=== PATIENT | male | born 1950 | race Caucasian/White ===

== ENCOUNTER 2018-03-02 19:19 | Inpatient (IN) ==
[2018-03-02 19:51] LABS: Basophils % 0.5 %; Eosinophils # 0.1 K/mcL (0.0-0.6); Eosinophils % 1.4 %; Hematocrit 40.5 % (37.5-50.1); Hemoglobin 14.4 g/dL (12.9-16.9); Immature Granulocytes % 0.6 % (0-4); Lymphocytes # 2.3 K/mcL (0.6-4.6); Lymphocytes % 27.1 %; Mean Corpuscular HGB Conc 35.6 g/dL (31.6-35.5); Mean Corpuscular Hemoglobin 29.6 pg (28.0-33.3); Mean Corpuscular Volume 83.3 fL (83.0-100.0); Mean Platelet Volume 11.2 fL (9.4-12.4); Monocytes # 0.6 K/mcL (0.0-1.3); Monocytes % 7.2 %; Neutrophils # 5.5 K/mcL (1.6-8.9); Platelet Count 178 K/mcL (140-400); Red Blood Count 4.86 M/mcL (4.19-5.50); Red Cell Distribution Width 12.7 % (11.5-14.5); Segmented Neutrophils % 63.2 %
[2018-03-02 19:57] LABS: VBG HCO3 22 mEq/L (21-27); VBG PCO2 47 mmHg (41-51); VBG PH 7.29 pH Units (7.32-7.42); VBG PO2 36 mmHg (25-50)
[2018-03-02 20:15] LABS: Alanine Aminotransferase 26 Units/L (7-52); Albumin 4.4 g/dL (3.5-5.7); Albumin/Globulin Ratio 1.4 (1.1-2.2); Alkaline Phosphatase 142 Units/L (34-104); Amylase 13 Units/L (29-103); Aspartate Amino Transferase 20 Units/L (13-39); BUN/Creatinine Ratio 18 (6-26); Bilirubin,Direct 0.1 mg/dL (0.0-0.2); Bilirubin,Indirect 0.5 mg/dL (0.0-1.2); Bilirubin,Total 0.6 mg/dL (0.3-1.0); Blood Urea Nitrogen 85 mg/dL (8-23); Calcium 9.6 mg/dL (8.6-10.3); Carbon Dioxide 21 mEq/L (23-29); Chloride 93 mEq/L (98-107); Globulin 3.2 g/dL (2.4-3.5); Glucose 547 mg/dL (70-105); Lipase 65 Units/L (11-82); Osmolality,Calculated 309 (280-300); Potassium 4.6 mEq/L (3.5-5.1); Sodium 124 mEq/L (136-145); Total Protein 7.6 g/dL (6.4-8.9); eGFR For African Americans 15 (> 60); eGFR For Non-African Americans 13 (> 60)
[2018-03-02 20:50] LABS: Bilirubin,Urine Negative (Negative); Blood,Urine Trace (Negative); Clarity,Urine Clear (Clear); Color,Urine Yellow (Yellow); Glucose,Urine (UA) >=1000 mg/dL (Normal); Ketones,Urine Negative (Negative); Leukocyte Esterase,Urine Negative (Negative); Nitrite,Urine Negative (Negative); PH,Urine 5.5 pH Units (5.0-8.0); Protein,Urine Trace mg/dL (Neg-Trace); Specific Gravity,Urine 1.028 (1.010-1.025); Urobilinogen,Urine Normal (Normal)
[2018-03-02 20:53] LABS: Bacteria,Urine None Seen per hpf (None-Few); Hyaline Casts,Urine None Seen per lpf (None-Few); RBC,Urine 0-3 per hpf (0-3); Squamous Epithelial Cell,Urine None Seen per lpf (None-Few); WBC,Urine 0-3 per hpf (0-3)
--- NOTE | 2018-03-02 21:32 | Internal Med History&Physical ---
Date of Encounter: 03/02/18 Time of Encounter: 21:30 Internal Medicine - H&P: HPI Chief complaint: Abnormal labs Admitted From: Emergency Dept Plans for Post Hospital Care: Home History of present illness: Mr. Welch is a 67 year old male with history of hypertension, hyperlipidemia, obesity, gout, GERD, chronic kidney disease [address] Kern , who was sent to the ED as he went to his primary care doctor was found to have labs showing elevated glucose and worsening kidney function. This was confirmed on repeat labs in the ED with glucose in the 564. Not in DKA. Sodium was 124. Lactic acid 1.6. Creatinine was 4.64 which is above his baseline. Otherwise the patient was hemodynamically stable. He has been feeling lightheaded for two weeks or so. No chest pain. No syncopal events. Reports hyperglycemic symptoms such as polydipsia and polyuria. He was out working on his pool earlier today when he felt really lightheaded and went to his PCP where the labs were ordered. He denies fever, chills, nausea, vomiting , chest pain, shortness of breath abdominal abdominal pain, diarrhea, constipation, numbness, tingling, or weakness Past Med Surg Social Fam HX - Past Medical History Medical history: GERD, hyperlipidemia, hypertension, kidney stones, other Psychiatric history: no psych history - Social History Smoking Status: Never smoker Smokeless Tobacco Status: No Alcohol use: none Drug use: none Internal Medicine - H&P: Meds Lisinopril [Zestril] 20 mg PO DAILY 10/10/17 [History] Omeprazole [PriLOSEC] 20 mg PO DAILY 10/10/17 [History] Allopurinol [Zyloprim 100 MG] 100 mg PO DAILY 03/02/18 [History] Simvastatin [Zocor] 20 mg PO HS 03/02/18 [History] 3 Allergy/AdvReac Type Severity Reaction Status Date / Time No Known Allergies Allergy Verified 03/02/18 21:02 All Systems PM: A 10-system review of systems was performed and is negative for pertinent findings except as documented above in the HPI. Review of systems: All systems reviewed are negative except for as mentioned above - Constitutional Vitals: Temp Pulse Resp BP Pulse Ox 97.3 F L 84 20 111/73 98 03/02/18 20:10 03/02/18 20:10 03/02/18 20:10 03/02/18 20:10 03/02/18 20:10 Exam: GEN: NAD HEENT: AT, NC, No cyanosis, oral mucosa is moist, No JVD Lymphatics: No lymphadenoapthy Eyes: Extrocular muscles intact, anicteric CVS:RRR. S1, S2, No m/r/g RESP: CTAB ABD: Soft, NT, ND, +BS EXT: No edema, No rashes, 2+ DP NEURO: Nonfocal, CN II-XII intact, No focal motor or sensory deficits Psych: Cooperative, Not anxious or depressed Internal Med - H&P Results - Labs CBC & Chem 7: 03/02/18 19:38 03/02/18 19:38 Labs: Short CBC 03/02/18 Range/Units 19:38 WBC 8.6 (4.3-11.1) K/mcL Hgb 14.4 (12.9-16.9) g/dL Hct 40.5 (37.5-50.1) % Plt Count 178 (140-400) K/mcL Neutrophils # 5.5 (1.6-8.9) K/mcL BMP 03/02/18 19:38 Sodium 124 L Potassium 4.6 Chloride 93 L Carbon Dioxide 21 L BUN 85 H Creatinine 4.64 H Glucose 547 H* Calcium 9.6 Liver Function 03/02/18 Range/Units 19:38 Total Bilirubin 0.6 (0.3-1.0) mg/dL Direct Bilirubin 0.1 (0.0-0.2) mg/dL AST 20 (13-39) Units/L ALT 26 (7-52) Units/L Alkaline Phosphatase 142 H (34-104) Units/L Albumin 4.4 (3.5-5.7) g/dL Urine 03/02/18 Range/Units 20:35 Urine Color Yellow (Yellow) Urine Clarity Clear (Clear) Urine pH 5.5 (5.0-8.0) pH Units Ur Specific [place] 1.028 H (1.010-1.025) Urine Protein Trace (Neg-Trace) mg/dL Urine Glucose (UA) >=1000 H (Normal) mg/dL - ABG Interpretation ABG results: 03/02/18 19:54 VBG pH 7.29 L VBG pCO2 47 VBG pO2 36 VBG HCO3 22 - Impressions ITS Impressions Chest X-Ray 03/02/18 21:04 IMPRESSION: No acute process. D/ / Ahmet See MD / Ahmet See MD Interpreting Provider: Ahmet See MD - Assessment and plan (1) Hyperglycemia Current Visit: Yes Status: Acute Assessment and plan: Likely new diagnosis of diabetes. We will check A1c. We will place on high dose sliding scale insulin. Patient may need insulin at discharge depending on his A1c. We will ask personal development educator to see him. (2) TERI (acute kidney injury) Current Visit: Yes Status: Acute Assessment and plan: Patient has CK-MB based on previous labs. This is much worse than when he is at baseline. Baseline is hard 2-2.3. We will try to hydrate. Check renal ultrasound. Avoid nephrotoxins. (3) CKD (chronic kidney disease) stage 3, GFR 30-59 ml/min Current Visit: Yes Status: Acute Assessment and plan: We will monitor. Plan is as above (4) Hyponatremia Current Visit: Yes Status: Acute Assessment and plan: Likely pseudohyponatremia with elevated glucose. We will monitor. (5) Hypertension Current Visit: Yes Status: Acute Assessment and plan: Blood pressure stable. Hold lisinopril given teri. We will order IV hydralazine to be used when necessary. Qualifiers: Hypertension type: essential hypertension Qualified Code(s): I10 - Essential (primary) hypertension (6) HLD (hyperlipidemia) Current Visit: Yes Status: Acute Assessment and plan: Continue statin Qualifiers: Hyperlipidemia type: unspecified Qualified Code(s): E78.5 - Hyperlipidemia , unspecified (7) GERD (gastroesophageal reflux disease) Current Visit: Yes Status: Acute Assessment and plan: Resume home PPI Qualifiers: Esophagitis presence: without esophagitis Qualified Code(s): K21.9 - Gastro -esophageal reflux disease without esophagitis (8) DVT prophylaxis Current Visit: Yes Status: Acute Assessment and plan: Heparin subcutaneous (9) Lightheadedness Current Visit: Yes Status: Acute Assessment and plan: Possibly from elevated glucose causing dehydration. Will check TSH, orthostatics , and echo - Time Spent With Patient Total time spent is greater than 50% in coordination of care (as documented) at patient's floor/unit and/or counseling patient:
[2018-03-02 21:34] LABS: Troponin I < 0.03 ng/mL (< 0.04)
[2018-03-02] MEDS ORDERED: Naloxone 0.4 MG/ML INJ IVP PRN (21:38)
[2018-03-02] MEDS ORDERED: 0.9 % Sodium Chloride 1,000 ML IVC ONE (21:38)
[2018-03-02] MEDS ORDERED: Acetaminophen 325 MG TABLET PO PRN (21:38)
[2018-03-02] MEDS ORDERED: Insulin Regular, Human 100 UNIT/ML SQ ONE (21:38)
[2018-03-02] MEDS ORDERED: *HR* Dextrose 50 % in Water (Syg) 50 ML SYRINGE IVP PRN (21:39)
[2018-03-02] MEDS ORDERED: D5% in Water 1,000 ML IVC PRN (21:39)
[2018-03-02] MEDS ORDERED: Dextrose Gel 15 GM/37.5 ML TUBE PO PRN ×2 (21:39)
[2018-03-02 21:52] LABS: Estimated Average Glucose 410 mg/dl; Hemoglobin A1C 15.9 %
--- NOTE | 2018-03-02 22:04 | Emergency Department Note ---
Disposition Clinical Impression: Hyperglycemia, ARF (acute renal failure) Disposition: Admitted As Inpatient Condition: Fair Referrals: Noemi Lowe CNP [Primary Care Provider] - General Adult HPI - General Chief complaint: ED General Medical Stated complaint: "Hyperglycemia/Sent by PCP" Time Seen by Provider: 03/02/18 19:38 Source: patient Mode of arrival: ambulatory Limitations: no limitations Nursing Notes Reviewed: Yes Vital Signs Reviewed: Yes - History of Present Illness HPI Narrative: 67-year-old male presents emergency Department with concerns of elevated blood sugar. Patient states his blood sugar is been increasing over the past 2 months. Patient reports he has been having episodes of lightheadedness and near syncopal symptoms at home with exertion. He had outpatient testing performed with his primary care provider who then sent him to the emergency department for further evaluation. Patient denies chest pain, shortness of breath, rash, fever, cough, abdominal pain. Pain Scale: 6 - Related Data Home Medications Medication Instructions Recorded Confirmed Lisinopril [Zestril] 20 mg PO DAILY 10/10/17 03/02/18 Omeprazole [PriLOSEC] 20 mg PO DAILY 10/10/17 03/02/18 Allopurinol [Zyloprim 100 MG] 100 mg PO DAILY 03/02/18 03/02/18 Simvastatin [Zocor] 20 mg PO HS 03/02/18 03/02/18 Allergies Allergy/AdvReac Type Severity Reaction Status Date / Time No Known Allergies Allergy Verified 03/02/18 21:02 All systems ED: reviewed and negative except as stated. Review of Systems: As Per HPI Past Medical History - Past Medical History Attestation: Yes The following information was validated with the patient. Source: patient Medical history: Reports: GERD, hyperlipidemia, hypertension, kidney stones, other Psychiatric history: Reports: no psych history - Social History Smoking Status: Never smoker Smokeless Tobacco Status: No Alcohol use: Reports: none Drug use: Reports: none Physical Exam General: Alert and in no acute distress Skin: Warm, dry, intact Head: Normocephalic and atraumatic Neck: Supple, trachea midline and no tenderness Cardiovascular: RRR, no murmur, normal perfusion Respiratory: CTAB, no wheezing, cough, or respiratory distress Musculoskeletal: Normal strength, no tenderness, swelling or deformity GI: Soft, nontender, nondistended. Bowel sounds present Neuro: A&O to person, place, time and situation. No focal deficits noted on exam Psychiatric: cooperative and appropriate mood and affect. - General General appearance: alert Course Vital Signs Temperature 97.3 F L 03/02/18 19:25 Pulse Rate 84 03/02/18 19:25 Respiratory Rate 20 03/02/18 19:25 Blood Pressure 111/73 03/02/18 19:25 O2 Sat by Pulse Oximetry 98 03/02/18 19:25 Temperature 97.3 F L 03/02/18 20:10 Pulse Rate 84 03/02/18 20:10 Respiratory Rate 20 03/02/18 20:10 Blood Pressure 111/73 03/02/18 20:10 O2 Sat by Pulse Oximetry 98 03/02/18 20:10 Oxygen Delivery Oxygen Delivery Room Air Medical Decision Making - MDM Narrative Medical decision making narrative: Patient has significantly elevated blood sugar however he does not have elevated beta hydroxybutyric acid or an anion gap on laboratory evaluation. Patient does have acute renal failure at creatinine of 4, his baseline creatinine is around 2. Patient will be given IV fluids and he will be admitted to hospitalist for further care and evaluation. Patient received insulin in the emergency department. Initial troponin negative. EKG showed sinus bradycardia with a rate of 59 without evidence of STEMI. - Medical Records Medical records reviewed: Yes I reviewed the patient's medical records. - Lab Data Lab results reviewed: Yes I reviewed the patient's lab results. Result diagrams: 03/02/18 19:38 03/02/18 19:38 Lab Results 03/02/18 03/02/18 03/02/18 Range/Units 19:33 19:33 19:38 WBC 8.6 (4.3-11.1) K/mcL RBC 4.86 (4.19-5.50) M/mcL Hgb 14.4 (12.9-16.9) g/dL Hct 40.5 (37.5-50.1) % MCV 83.3 (83.0-100.0) fL MCH 29.6 (28.0-33.3) pg MCHC 35.6 H (31.6-35.5) g/dL RDW 12.7 (11.5-14.5) % Plt Count 178 (140-400) K/mcL MPV 11.2 (9.4-12.4) fL Immature Gran % 0.6 (0-4) % Seg Neutrophils % 63.2 % Lymphocytes % 27.1 % Monocytes % 7.2 % Eosinophils % 1.4 % Basophils % 0.5 % Neutrophils # 5.5 (1.6-8.9) K/mcL Lymphocytes # 2.3 (0.6-4.6) K/mcL Monocytes # 0.6 (0.0-1.3) K/mcL Eosinophils # 0.1 (0.0-0.6) K/mcL Basophils # 0.0 (0.0-0.2) K/mcL VBG pH (7.32-7.42) pH Units VBG pCO2 (41-51) mmHg VBG pO2 (25-50) mmHg VBG HCO3 (21-27) mEq/L Sodium (136-145) mEq/L Potassium (3.5-5.1) mEq/L Chloride (98-107) mEq/L Carbon Dioxide (23-29) mEq/L BUN (8-23) mg/dL Creatinine (0.70-1.30) mg/dL Est GFR ( Amer) (> 60) Est GFR (Non-Af Amer) (> 60) BUN/Creatinine Ratio (6-26) Glucose (70-105) mg/dL POC Glucose 545 H* 564 H* (70-99) mg/dL Calculated Osmolality (280-300) Lactic Acid (0.5-2.2) mmol/L Calcium (8.6-10.3) mg/dL Total Bilirubin (0.3-1.0) mg/dL Direct Bilirubin (0.0-0.2) mg/dL Indirect Bilirubin (0.0-1.2) mg/dL AST (13-39) Units/L ALT (7-52) Units/L Alkaline Phosphatase (34-104) Units/L Troponin I (< 0.04) ng/mL Serum Total Protein (6.4-8.9) g/dL Albumin (3.5-5.7) g/dL Globulin (2.4-3.5) g/dL Albumin/Globulin Ratio (1.1-2.2) Amylase (29-103) Units/L Lipase (11-82) Units/L Beta-Hydroxybutyric Acd (0.02-0.27) mmol/L Urine Color (Yellow) Urine Clarity (Clear) Urine pH (5.0-8.0) pH Units Ur Specific [place] (1.010-1.025) Urine Protein (Neg-Trace) mg/dL Urine Glucose (UA) (Normal) mg/dL Urine Ketones (Negative) mg/dL Urine Blood (Negative) Urine Nitrite (Negative) Urine Bilirubin (Negative) Urine Urobilinogen (Normal) mg/dL Ur Leukocyte Esterase (Negative) Urine Microscopic RBC (0-3) per hpf Urine Microscopic WBC (0-3) per hpf Ur Squamous Epith Cells (None-Few) per lpf Urine Bacteria (None-Few) per hpf Hyaline Casts (None-Few) per lpf Ur Culture Indicated? (NO) 03/02/18 03/02/18 03/02/18 Range/Units 19:38 19:38 19:38 WBC (4.3-11.1) K/mcL RBC (4.19-5.50) M/mcL Hgb (12.9-16.9) g/dL Hct (37.5-50.1) % MCV (83.0-100.0) fL MCH (28.0-33.3) pg MCHC (31.6-35.5) g/dL RDW (11.5-14.5) % Plt Count (140-400) K/mcL MPV (9.4-12.4) fL Immature Gran % (0-4) % Seg Neutrophils % % Lymphocytes % % Monocytes % % Eosinophils % % Basophils % % Neutrophils # (1.6-8.9) K/mcL Lymphocytes # (0.6-4.6) K/mcL Monocytes # (0.0-1.3) K/mcL Eosinophils # (0.0-0.6) K/mcL Basophils # (0.0-0.2) K/mcL VBG pH (7.32-7.42) pH Units VBG pCO2 (41-51) mmHg VBG pO2 (25-50) mmHg VBG HCO3 (21-27) mEq/L Sodium 124 L (136-145) mEq/L Potassium 4.6 (3.5-5.1) mEq/L Chloride 93 L (98-107) mEq/L Carbon Dioxide 21 L (23-29) mEq/L BUN 85 H (8-23) mg/dL Creatinine 4.64 H (0.70-1.30) mg/dL Est GFR ( Amer) 15 L (> 60) Est GFR (Non-Af Amer) 13 L (> 60) BUN/Creatinine Ratio 18 (6-26) Glucose 547 H* (70-105) mg/dL POC Glucose (70-99) mg/dL Calculated Osmolality 309 H (280-300) Lactic Acid 1.6 (0.5-2.2) mmol/L Calcium 9.6 (8.6-10.3) mg/dL Total Bilirubin 0.6 (0.3-1.0) mg/dL Direct Bilirubin 0.1 (0.0-0.2) mg/dL Indirect Bilirubin 0.5 (0.0-1.2) mg/dL AST 20 (13-39) Units/L ALT 26 (7-52) Units/L Alkaline Phosphatase 142 H (34-104) Units/L Troponin I < 0.03 (< 0.04) ng/mL Serum Total Protein 7.6 (6.4-8.9) g/dL Albumin 4.4 (3.5-5.7) g/dL Globulin 3.2 (2.4-3.5) g/dL Albumin/Globulin Ratio 1.4 (1.1-2.2) Amylase 13 L (29-103) Units/L Lipase 65 (11-82) Units/L Beta-Hydroxybutyric Acd 0.11 (0.02-0.27) mmol/L Urine Color (Yellow) Urine Clarity (Clear) Urine pH (5.0-8.0) pH Units Ur Specific [place] (1.010-1.025) Urine Protein (Neg-Trace) mg/dL Urine Glucose (UA) (Normal) mg/dL Urine Ketones (Negative) mg/dL Urine Blood (Negative) Urine Nitrite (Negative) Urine Bilirubin (Negative) Urine Urobilinogen (Normal) mg/dL Ur Leukocyte Esterase (Negative) Urine Microscopic RBC (0-3) per hpf Urine Microscopic WBC (0-3) per hpf Ur Squamous Epith Cells (None-Few) per lpf Urine Bacteria (None-Few) per hpf Hyaline Casts (None-Few) per lpf Ur Culture Indicated? (NO) 03/02/18 03/02/18 Range/Units 19:54 20:35 WBC (4.3-11.1) K/mcL RBC (4.19-5.50) M/mcL Hgb (12.9-16.9) g/dL Hct (37.5-50.1) % MCV (83.0-100.0) fL MCH (28.0-33.3) pg MCHC (31.6-35.5) g/dL RDW (11.5-14.5) % Plt Count (140-400) K/mcL MPV (9.4-12.4) fL Immature Gran % (0-4) % Seg Neutrophils % % Lymphocytes % % Monocytes % % Eosinophils % % Basophils % % Neutrophils # (1.6-8.9) K/mcL Lymphocytes # (0.6-4.6) K/mcL Monocytes # (0.0-1.3) K/mcL Eosinophils # (0.0-0.6) K/mcL Basophils # (0.0-0.2) K/mcL VBG pH 7.29 L (7.32-7.42) pH Units VBG pCO2 47 (41-51) mmHg VBG pO2 36 (25-50) mmHg VBG HCO3 22 (21-27) mEq/L Sodium (136-145) mEq/L Potassium (3.5-5.1) mEq/L Chloride (98-107) mEq/L Carbon Dioxide (23-29) mEq/L BUN (8-23) mg/dL Creatinine (0.70-1.30) mg/dL Est GFR ( Amer) (> 60) Est GFR (Non-Af Amer) (> 60) BUN/Creatinine Ratio (6-26) Glucose (70-105) mg/dL POC Glucose (70-99) mg/dL Calculated Osmolality (280-300) Lactic Acid (0.5-2.2) mmol/L Calcium (8.6-10.3) mg/dL Total Bilirubin (0.3-1.0) mg/dL Direct Bilirubin (0.0-0.2) mg/dL Indirect Bilirubin (0.0-1.2) mg/dL AST (13-39) Units/L ALT (7-52) Units/L Alkaline Phosphatase (34-104) Units/L Troponin I (< 0.04) ng/mL Serum Total Protein (6.4-8.9) g/dL Albumin (3.5-5.7) g/dL Globulin (2.4-3.5) g/dL Albumin/Globulin Ratio (1.1-2.2) Amylase (29-103) Units/L Lipase (11-82) Units/L Beta-Hydroxybutyric Acd (0.02-0.27) mmol/L Urine Color Yellow (Yellow) Urine Clarity Clear (Clear) Urine pH 5.5 (5.0-8.0) pH Units Ur Specific [place] 1.028 H (1.010-1.025) Urine Protein Trace (Neg-Trace) mg/dL Urine Glucose (UA) >=1000 H (Normal) mg/dL Urine Ketones Negative (Negative) mg/dL Urine Blood Trace H (Negative) Urine Nitrite Negative (Negative) Urine Bilirubin Negative (Negative) Urine Urobilinogen Normal (Normal) mg/dL Ur Leukocyte Esterase Negative (Negative) Urine Microscopic RBC 0-3 (0-3) per hpf Urine Microscopic WBC 0-3 (0-3) per hpf Ur Squamous Epith Cells None Seen (None-Few) per lpf Urine Bacteria None Seen (None-Few) per hpf Hyaline Casts None Seen (None-Few) per lpf Ur Culture Indicated? NO (NO)
[2018-03-02] MEDS: *HR* Heparin 5,000 UNIT/ML VIAL SQ SCH (23:59)
[2018-03-03] MEDS: 0.9 % Sodium Chloride 1,000 ML IVC SCH ×3 (00:02→12:05)
[2018-03-03] MEDS: *HR* Heparin 5,000 UNIT/ML VIAL SQ SCH ×2 (05:20→14:49)
[2018-03-03 06:35] LABS: Basophils # 0.1 K/mcL (0.0-0.2); Basophils % 0.7 %; Eosinophils # 0.2 K/mcL (0.0-0.6); Eosinophils % 2.5 %; Hematocrit 38.5 % (37.5-50.1); Hemoglobin 13.3 g/dL (12.9-16.9); Immature Granulocytes % 0.4 % (0-4); Lymphocytes # 2.6 K/mcL (0.6-4.6); Lymphocytes % 36.6 %; Mean Corpuscular HGB Conc 34.5 g/dL (31.6-35.5); Mean Corpuscular Volume 84.1 fL (83.0-100.0); Monocytes # 0.7 K/mcL (0.0-1.3); Neutrophils # 3.7 K/mcL (1.6-8.9); Platelet Count 154 K/mcL (140-400); Red Blood Count 4.58 M/mcL (4.19-5.50); Red Cell Distribution Width 12.7 % (11.5-14.5); Segmented Neutrophils % 50.8 %
[2018-03-03 07:21] LABS: BUN/Creatinine Ratio 22 (6-26); Blood Urea Nitrogen 75 mg/dL (8-23); Carbon Dioxide 21 mEq/L (23-29); Chloride 103 mEq/L (98-107); Chol/HDL Ratio 7.3 (0-4.9); Cholesterol 146 mg/dL (< 200); Glucose 223 mg/dL (70-105); HDL Cholesterol 20 mg/dL (40-59); Magnesium 2.2 mg/dL (1.6-2.6); Osmolality,Calculated 305 (280-300); Potassium 4.1 mEq/L (3.5-5.1); Sodium 133 mEq/L (136-145); Triglycerides 453 mg/dL (< 150); eGFR For African Americans 22 (> 60); eGFR For Non-African Americans 18 (> 60)
[2018-03-03] MEDS: Insulin LISPRO 300 UNITS/3 ML VIAL SQ SCH ×3 (08:34→17:01)
--- NOTE | 2018-03-03 11:08 | Internal Med Progress Note ---
Date of Encounter: 03/03/18 Time of Encounter: 11:00 - Assessment and plan (1) Uncontrolled diabetes mellitus Current Visit: Yes Status: Acute Assessment and plan: Pt came in with blood sugar in the 500s. No DKA. A1c was 15. Will start on weight based levemir and novolog regimen Qualifiers: Diabetes mellitus type: type 2 Qualified Code(s): E11.65 - Type 2 diabetes mellitus with hyperglycemia (2) Lightheadedness Current Visit: Yes Status: Acute Assessment and plan: Lightheadness/ syncope possibly form dehydration vs arrhythmia. Will give IV fluids, Obtain 2d echo. EKG shows bradycardia. Cardiology recs appreciated (3) CISCO (acute kidney injury) Current Visit: Yes Status: Acute Assessment and plan: Likely 2/2 to dehydration. Will give IV fluids. (4) CKD (chronic kidney disease) stage 3, GFR 30-59 ml/min Current Visit: Yes Status: Acute Assessment and plan: We will monitor. Plan is as above (5) Hyponatremia Current Visit: Yes Status: Acute Assessment and plan: Likely pseudohyponatremia with elevated glucose. We will monitor. (6) Hypertension Current Visit: Yes Status: Acute Assessment and plan: Blood pressure stable. Hold lisinopril given cisco. We will order IV hydralazine to be used when necessary. Qualifiers: Hypertension type: essential hypertension Qualified Code(s): I10 - Essential (primary) hypertension (7) HLD (hyperlipidemia) Current Visit: Yes Status: Acute Assessment and plan: Continue statin Qualifiers: Hyperlipidemia type: unspecified Qualified Code(s): E78.5 - Hyperlipidemia , unspecified (8) DVT prophylaxis Current Visit: Yes Status: Acute Assessment and plan: Heparin subcutaneous (9) GERD (gastroesophageal reflux disease) Current Visit: Yes Status: Acute Assessment and plan: Resume home PPI Qualifiers: Esophagitis presence: without esophagitis Qualified Code(s): K21.9 - Gastro -esophageal reflux disease without esophagitis - Time Spent With Patient Total time spent is greater than 50% in coordination of care (as documented) at patient's floor/unit and/or counseling patient: - Subjective Interval history: No acute events overnight - Constitutional Vitals: Temp Pulse Resp BP Pulse Ox 98.1 F 68 18 101/66 99 03/03/18 07:49 03/03/18 07:49 03/03/18 07:49 03/03/18 07:49 03/03/18 07:49 - Head Head exam: Present: atraumatic, normocephalic - Eye Eye exam: Present: PERRL, conjuntiva pink, sclera anicteric Pupils: Present: PERRL - Neck Neck exam general surgery: Present: supple, trachea midline. Absent: lymphadenopathy - Respiratory Respiratory exam: Present: CTAB. Absent: accessory muscle use, rales, rhonchi, wheezes - Cardiovascular Cardiovascular exam: Present: RRR, +S1, +S2. Absent: diastolic murmur, gallop, rubs, systolic murmur - GI/Abdominal GI/Abdominal exam: Present: normal bowel sounds, soft, no peritoneal signs. Absent: distended, tenderness - Extremities Exam Extremities exam: Present: warm, radial pulses palpable and symmetrical. Absent : calf tenderness, cyanotic, pedal edema - Neurological Exam Neurological exam: Present: CN II-XII intact, oriented X3, no focal deficits. Absent: pronater drift, facial droop, speech deficit - Skin Skin exam: Present: dry, intact Internal Medicine: Result - Labs CBC & Chem 7: 03/03/18 06:02 03/03/18 06:02 Labs: Short CBC 03/03/18 Range/Units 06:02 WBC 7.2 (4.3-11.1) K/mcL Hgb 13.3 (12.9-16.9) g/dL Hct 38.5 (37.5-50.1) % Plt Count 154 (140-400) K/mcL Neutrophils # 3.7 (1.6-8.9) K/mcL BMP 03/03/18 06:02 Sodium 133 L D Potassium 4.1 Chloride 103 Carbon Dioxide 21 L BUN 75 H Creatinine 3.41 H Glucose 223 H Calcium 9.0 Consult Discharge Plan - Plan Referrals: Noemi Lowe, [facility] [Primary Care Provider] -
--- NOTE | 2018-03-03 14:36 | Cardiology Consult Note ---
Addendum entered and electronically signed by Roderick Mina CNP 03/03/18 14:50 : Original Note: Date of Encounter: 03/03/18 Time of Encounter: 14:30 Assessment and Plan (1) Bradycardia Current Visit: Yes Status: Acute Intermittent bradycardia noted this morning and through the night. EKG shows sinus bradycardia, HR 59 bpm, first degree block. HR as low as 39 bpm seen during nocturnal hours. HR in the 50's seen during day time hours. Reported to have HR in the 30's while he was awake but he was asymptomatic. Noted at have CISCO with Scr 4. 64 and blood sugar at 547. B/p currently stable. TSH normal. Check TTE. Avoid AV beth blockers. Will continue to monitor. Discussion w patient/family: The assessment and plan as outlined above was discussed with the patient and/or family members who expressed understanding and agreement. All questions were answered. Thank you for involving us in the care of your patient. Please call with any questions. History of Present Illness Consult date: 03/03/18 Requesting physician: Hunter Nur Consult reason: bradycardia, dizziness Chief complaint: Blurred vission, presyncope History of present illness: Mr. Welch is a 67 year old male with past medical history of HTN, HLD, and brain anuerysm s/p clip who presented with dizziness and presyncope. He was doing yard work when he developed blurred vision and felt unbalanced. He reports feeling as if he would pass out. He denies syncope. C/o ongoing symptoms for the past two weeks. He presented to the ED and was found to have blood sugar above 500. He denies previous history of diabetes. He was also noted to have intermittent episodes of bradycardia. Cardiology consulted for bradycardia. He denies prior cardiac history. Past Med Surg Social Fam HX - Past Medical History Attestation: Yes The following information was validated with the patient. Medical history: GERD, hyperlipidemia, hypertension, kidney stones, other Psychiatric history: no psych history - Social History Smoking Status: Never smoker Smokeless Tobacco Status: No Alcohol use: none Drug use: none - Family History Mother Living Status: Hx Family Endocrine Disorder: Yes (DM) Brother Living Status: Still Living Hx Family Cardiac Disorders: Yes (HTN) Hx Family Endocrine Disorder: Yes (DM) Sister Living Status: Still Living Hx Family Cardiac Disorders: Yes (HTN) Hx Family Endocrine Disorder: Yes (DM) Medications and Allergies Lisinopril [Zestril] 20 mg PO DAILY 10/10/17 [History] Omeprazole [PriLOSEC] 20 mg PO DAILY 10/10/17 [History] Allopurinol [Zyloprim 100 MG] 100 mg PO DAILY 03/02/18 [History] Simvastatin [Zocor] 20 mg PO HS 03/02/18 [History] 3 Allergy/AdvReac Type Severity Reaction Status Date / Time No Known Allergies Allergy Verified 03/02/18 21:02 All Systems Review: The remainder of the systems were reviewed and are negative Physical Examination Vital Signs, Last 4 Hours Temp Pulse Resp BP Pulse Ox 03/03/18 11:39 97.9 F 70 18 105/71 97 General: Conversant, No Apparent Distress HEENT: Atraumatic, Normocephaly, Mucus Membranes Moist Neck: No JVD, Normal carotid pulses Cardiac: Reg Rate and Rhythm, Normal S1 and S2, No Murmur Lungs: Normal Breath Sounds, No Wheeze, Rales, Rhonchi Neuro: Alert and responsive, No focal deficits noted Abdomen: Soft, Non-Tender Skin: No rashes noted on visualized skin Musculoskeletal: No Chest Wall Tenderness Extremities: No Clubbing, No Cyanosis, No Edema, Normal Pulses Results 03/03/18 06:02 03/03/18 06:02 Lab Results 03/03/18 03/03/18 03/03/18 06:02 06:02 06:02 WBC 7.2 Hgb 13.3 Hct 38.5 Plt Count 154 Sodium 133 L D Potassium 4.1 Chloride 103 Carbon Dioxide 21 L BUN 75 H Creatinine 3.41 H Glucose 223 H Calcium 9.0 Magnesium 2.2 TSH 2.182 - Imaging and Cardiology Echo: pending - EKG Interpretation EKG results cardiology: personally reviewed (SB, HR 59 bpm, 1st degree block) Consult Discharge Plan - Plan Referrals: Noemi Lowe, [facility] [Primary Care Provider] -
[2018-03-03] MEDS ORDERED: Insulin DETEMIR 100 UNIT/ML X5UNITS SQ SCH (21:00)
[2018-03-03] MEDS ORDERED: Insulin LISPRO 300 UNITS/3 ML VIAL SQ SCH (21:00)
[2018-03-04] MEDS: 0.9 % Sodium Chloride 1,000 ML IVC SCH ×2 (02:17→11:21)
[2018-03-04] MEDS: *HR* Heparin 5,000 UNIT/ML VIAL SQ SCH ×2 (04:35→06:13)
[2018-03-04 06:16] LABS: Basophils # 0.1 K/mcL (0.0-0.2); Basophils % 0.8 %; Eosinophils # 0.2 K/mcL (0.0-0.6); Eosinophils % 2.6 %; Hematocrit 39.9 % (37.5-50.1); Hemoglobin 13.6 g/dL (12.9-16.9); Immature Granulocytes % 0.5 % (0-4); Lymphocytes # 2.3 K/mcL (0.6-4.6); Lymphocytes % 35.2 %; Mean Corpuscular HGB Conc 34.1 g/dL (31.6-35.5); Mean Corpuscular Hemoglobin 28.7 pg (28.0-33.3); Mean Corpuscular Volume 84.2 fL (83.0-100.0); Monocytes # 0.5 K/mcL (0.0-1.3); Monocytes % 8.1 %; Neutrophils # 3.5 K/mcL (1.6-8.9); Platelet Count 164 K/mcL (140-400); Red Blood Count 4.74 M/mcL (4.19-5.50); Red Cell Distribution Width 12.7 % (11.5-14.5); Segmented Neutrophils % 52.8 %
[2018-03-04 06:35] LABS: Calcium 9.2 mg/dL (8.6-10.3); Potassium 4.6 mEq/L (3.5-5.1)
--- NOTE | 2018-03-04 08:22 | Electrocardiograph Report ---
[place] [id number] Test Date: 2018-03-02 Pat Name: Vinnie Welch Department: 102 Room: 2A43 Gender: M Valet Cashier: Joelle : 1950 Requested By: Nato Wyman Order Number: [id number] Reading MD: Ronen Padilla Measurements Intervals [place] Rate: 59 P: 57 [place]: 234 QRS: 7 QRSD: 108 T: 31 QT: 359 QTc: 358 Interpretive Statements SINUS BRADYCARDIA WITH FIRST DEGREE AV BLOCK Electronically Signed On 03-04-2018 8:20:46 EDT by Ronen Padilla
[2018-03-04] MEDS: Insulin LISPRO 300 UNITS/3 ML VIAL SQ SCH ×2 (08:24→12:16)
--- NOTE | 2018-03-04 08:41 | Internal Med Progress Note ---
Date of Encounter: 03/04/18 Time of Encounter: 08:40 - Assessment and plan (1) Uncontrolled diabetes mellitus Current Visit: Yes Status: Acute Assessment and plan: Pt came in with blood sugar in the 500s. No DKA. A1c was 15. Will start on weight based levemir and novolog regimen. Pt's sugars are better controlled this am Qualifiers: Diabetes mellitus type: type 2 Qualified Code(s): E11.65 - Type 2 diabetes mellitus with hyperglycemia (2) Lightheadedness Current Visit: Yes Status: Acute Assessment and plan: Lightheadness/ syncope possibly from dehydration vs arrhythmia. Will give IV fluids. EKG shows bradycardia. Echo came back with normal EF. Cardiology plan for discharge with holter monitor and outpatient follow up (3) Bradycardia Current Visit: Yes Status: Acute Assessment and plan: See plan for lightheadedness (4) CISCO (acute kidney injury) Current Visit: Yes Status: Acute Assessment and plan: Likely 2/2 to dehydration. Will give IV fluids. Creatinine trending down (5) CKD (chronic kidney disease) stage 3, GFR 30-59 ml/min Current Visit: Yes Status: Acute Assessment and plan: We will monitor. Plan is as above (6) Hyponatremia Current Visit: Yes Status: Acute Assessment and plan: Likely pseudohyponatremia with elevated glucose. Continue IV fluids (7) Hypertension Current Visit: Yes Status: Acute Assessment and plan: Blood pressure stable. Hold lisinopril given cisco. Hydralzine PRN. Qualifiers: Hypertension type: essential hypertension Qualified Code(s): I10 - Essential (primary) hypertension (8) HLD (hyperlipidemia) Current Visit: Yes Status: Acute Assessment and plan: Continue statin Qualifiers: Hyperlipidemia type: unspecified Qualified Code(s): E78.5 - Hyperlipidemia , unspecified (9) DVT prophylaxis Current Visit: Yes Status: Acute Assessment and plan: Heparin subcutaneous (10) GERD (gastroesophageal reflux disease) Current Visit: Yes Status: Acute Assessment and plan: Resume home PPI Qualifiers: Esophagitis presence: without esophagitis Qualified Code(s): K21.9 - Gastro -esophageal reflux disease without esophagitis - Time Spent With Patient Total time spent is greater than 50% in coordination of care (as documented) at patient's floor/unit and/or counseling patient: - Subjective Interval history: No acute events overnight - Constitutional Vitals: Temp Pulse Resp BP Pulse Ox 97.6 F 56 17 106/60 95 03/04/18 07:29 03/04/18 07:29 03/04/18 07:29 03/04/18 07:29 03/04/18 07:29 - Head Head exam: Present: atraumatic, normocephalic - Eye Eye exam: Present: PERRL, conjuntiva pink, sclera anicteric Pupils: Present: PERRL - Neck Neck exam general surgery: Present: supple, trachea midline. Absent: lymphadenopathy - Respiratory Respiratory exam: Present: CTAB. Absent: accessory muscle use, rales, rhonchi, wheezes - Cardiovascular Cardiovascular exam: Present: RRR, +S1, +S2. Absent: diastolic murmur, gallop, rubs, systolic murmur - GI/Abdominal GI/Abdominal exam: Present: normal bowel sounds, soft, no peritoneal signs. Absent: distended, tenderness - Extremities Exam Extremities exam: Present: warm, radial pulses palpable and symmetrical. Absent : calf tenderness, cyanotic, pedal edema - Neurological Exam Neurological exam: Present: CN II-XII intact, oriented X3, no focal deficits. Absent: pronater drift, facial droop, speech deficit - Skin Skin exam: Present: dry, intact Internal Medicine: Result - Labs CBC & Chem 7: 03/04/18 05:36 03/04/18 05:36 Labs: Short CBC 03/04/18 Range/Units 05:36 WBC 6.5 (4.3-11.1) K/mcL Hgb 13.6 (12.9-16.9) g/dL Hct 39.9 (37.5-50.1) % Plt Count 164 (140-400) K/mcL Neutrophils # 3.5 (1.6-8.9) K/mcL BMP 03/04/18 05:36 Sodium 135 L Potassium 4.6 Chloride 106 Carbon Dioxide 22 L BUN 56 H Creatinine 2.27 H Glucose 150 H Calcium 9.2 - Impressions Impressions Echocardiogram 03/03/18 11:46 Impressions: LVEF 60%. Normal LV chamber size, wall thickness and function. Pseudonormal left ventricular diastolic function. Normal right ventricular structure and function. No evidence of pulmonary hypertension. No significant valvular dysfunction. Left Ventricular Wall Motion: Rest Echo Findings All wall segments showed normal motion. Findings: Study Quality * Technically adequate exam. ECG Findings * Sinus bradycardia. Left Ventricle * LVEF 60%. * Normal LV chamber size, wall thickness and function. * Pseudonormal left ventricular diastolic function. Right Ventricle * Normal right ventricular structure and function. Left Atrium * Mildly dilated left atrium. Right Atrium * Normal right atrial size. Aortic Valve * Trileaflet aortic valve with normal function. * No aortic regurgitation. * No aortic stenosis. Mitral Valve * Normal mitral valve structure and function. * No mitral stenosis. * Trace mitral regurgitation. Tricuspid Valve * Normal tricuspid valve structure and function. * Trace tricuspid regurgitation. * No evidence of pulmonary hypertension. Pulmonic Valve * Normal pulmonic valve structure and function. * Trace pulmonic regurgitation. Aorta * Normally sized aortic root. Pericardium * The pericardium appears normal. IVC * Normal IVC dimensions and inspiratory collapse. Pulmonary Artery * Normal visualized portions of the main pulmonary artery. Consult Discharge Plan - Plan Referrals: Noemi Lowe CNP [Primary Care Provider] - Prescriptions: Insulin ASPART [Novolog Flexpen] 10 unit SQ ACHS #30 [email or web address] Insulin DETEMIR [Levemir] 30 unit SQ HS #30 mls
[2018-03-04] MEDS ORDERED: Aspirin 81 MG TAB.CHEW PO SCH (09:45)
--- NOTE | 2018-03-04 15:05 | Cardiology Progress Note ---
Date of Encounter: 03/04/18 Time of Encounter: 11:15 Assessment and Plan (1) Bradycardia Current Visit: Yes Status: Acute Intermittent bradycardia noted on admission with HR as low as 39 bpm during waking hours. EKG shows sinus bradycardia, HR 59 bpm, first degree block. Presented with dizziness but asymotomatic during low HR. Bradycardia likely secondary to metabolic derangement from CISCO. TSH normal. TTE-LVEF 60%. Normal LV chamber size, wall thickness and function. Pseudonormal left ventricular diastolic function. Normal right ventricular structure and function. No evidence of pulmonary hypertension. No significant valvular dysfunction. Avoid AV beth blockers. HR improved as CISCO improving. He denies recurrent symptoms. No further testing recommended. AVg HR 58 bpm. Min HR 45 bpm at 1: 03am. Out-pt f/u will be scheduled. Holter monitor can be ordered in out-pt setting for re-evaluation. Discussion w patient/family: The assessment and plan as outlined above was discussed with the patient and/or family members who expressed understanding and agreement. All questions were answered. Thank you for involving us in the care of your patient. Please call with any questions. Subjective Principal diagnosis: bradycardia Interval history: Denies recurrent dizziness. Objective Vital Signs, Last 4 Hours Temp Pulse Resp BP Pulse Ox 03/04/18 11:26 97.7 F 54 16 118/76 97 General: Conversant, No Apparent Distress HEENT: Atraumatic, Normocephaly, Mucus Membranes Moist Neck: No JVD, Normal carotid pulses Cardiac: Reg Rate and Rhythm, Normal S1 and S2, No Murmur Lungs: Normal Breath Sounds, No Wheeze, Rales, Rhonchi Neuro: Alert and responsive, No focal deficits noted Abdomen: Soft, Non-Tender Skin: No rashes noted on visualized skin Musculoskeletal: No Chest Wall Tenderness Extremities: No Clubbing, No Cyanosis, No Edema, Normal Pulses Results 03/04/18 05:36 03/04/18 05:36 Lab Results 03/04/18 03/04/18 05:36 05:36 WBC 6.5 Hgb 13.6 Hct 39.9 Plt Count 164 Sodium 135 L Potassium 4.6 Chloride 106 Carbon Dioxide 22 L BUN 56 H Creatinine 2.27 H Glucose 150 H Calcium 9.2 - EKG Interpretation EKG results cardiology: personally reviewed Consult Discharge Plan - Plan Referrals: Noemi Lowe, [facility] [Primary Care Provider] - Prescriptions: Insulin ASPART [Novolog Flexpen] 10 unit SQ ACHS #30 [email or web address] Insulin DETEMIR [Levemir] 30 unit SQ HS #30 mls
[2018-03-04 15:46] VITALS: BP 114/63
--- NOTE | 2018-03-04 15:52 | Discharge Summary ---
Orders not resulted at time of discharge: Pending orders 03/03/18 11:22 ECG 12 lead ECG [ECG] Stat 03/04/18 15:25 ECG 48 holter monitor setup [ECG] Routine 03/05/18 04:00 Basic Metabolic Panel AM 0400 CBC [Complete Blood Count] [HEME] AM 04003/06/18 04:00 Basic Metabolic Panel AM 0400 CBC [Complete Blood Count] [HEME] AM 04003/07/18 04:00 Basic Metabolic Panel AM 0400 CBC [Complete Blood Count] [HEME] AM 04003/08/18 04:00 Basic Metabolic Panel AM 0400 CBC [Complete Blood Count] [HEME] AM 0400 03/09/18 04:00 Basic Metabolic Panel AM 0400 CBC [Complete Blood Count] [HEME] AM 040 Date of Encounter: 03/04/18 Time of Encounter: 16:00 - Discharge Diagnosis (1) Uncontrolled diabetes mellitus Priority: Primary Status: Acute Assessment and Plan: 67 year old male with history of hypertension, hyperlipidemia, obesity, gout, GERD, chronic kidney disease [address] Kern, who was sent to the ED as he went to his primary care doctor was found to have labs showing elevated glucose and worsening kidney function. He was admitted with uncontrolled hyperglycemia and new onset diabetes. His hemoglobin A1c came back elevated at 15. He was started on a weight based insulin regime with 30units of levemir and 10units of novolog wth adequate control of his blood sugars. He was given diabetes education and discharged with diabetes supplies and counseled to f/u with his PCP. His CISCO on CKD resolved with IV fluids He was also noted to be bradycardic with intermittent episodes of light headedness. He was seen by cardiolgy who recommend discharge geri holter monitor with outpatient follow up Qualifiers: Diabetes mellitus type: type 2 Qualified Code(s): E11.65 - Type 2 diabetes mellitus with hyperglycemia (2) Lightheadedness Priority: Secondary Status: Acute (3) Bradycardia Priority: Secondary Status: Acute (4) CISCO (acute kidney injury) Priority: Secondary Status: Acute (5) CKD (chronic kidney disease) stage 3, GFR 30-59 ml/min Priority: Secondary Status: Acute (6) Hyponatremia Priority: Secondary Status: Acute (7) Hypertension Priority: Secondary Status: Acute Qualifiers: Hypertension type: essential hypertension Qualified Code(s): I10 - Essential (primary) hypertension (8) HLD (hyperlipidemia) Priority: Secondary Status: Acute Qualifiers: Hyperlipidemia type: unspecified Qualified Code(s): E78.5 - Hyperlipidemia , unspecified (9) DVT prophylaxis Priority: Secondary Status: Acute (10) GERD (gastroesophageal reflux disease) Priority: Secondary Status: Acute Qualifiers: Esophagitis presence: without esophagitis Qualified Code(s): K21.9 - Gastro -esophageal reflux disease without esophagitis Hospital course: Mr. Welch is a 67 year old male - Time Spent with Patient Total time spent providing and/or coordinating discharge services: - Discharge Medications Prescriptions: Insulin ASPART [Novolog Flexpen] 10 unit SQ ACHS #30 [email or web address] Insulin DETEMIR [Levemir] 30 unit SQ HS #30 mls Home Medications: Lisinopril [Zestril] 20 mg PO DAILY 10/10/17 [History] Omeprazole [PriLOSEC] 20 mg PO DAILY 10/10/17 [History] Allopurinol [Zyloprim 100 MG] 100 mg PO DAILY 03/02/18 [History] Simvastatin [Zocor] 20 mg PO HS 03/02/18 [History] Insulin ASPART [Novolog Flexpen] 10 unit SQ ACHS #30 insuln.pen 03/04/18 [Rx] Insulin DETEMIR [Levemir] 30 unit SQ HS #30 mls 03/04/18 [Rx] Allergies/Adverse Reactions: 3 Allergy/AdvReac Type Severity Reaction Status Date / Time No Known Allergies Allergy Verified 03/02/18 21:02 Date of admission: 03/02/18 22:13 Primary care physician: Noemi Lowe CNP Consults: 03/02/18 22:41 Consult to Diabetes Education [CONS] Routine Comment: Reason for Consult: new diabetes 03/03/18 11:04 Consult to Diabetes Education [CONS] Routine Comment: Reason for Consult: uncontrolled diabetes- new onset 03/03/18 11:43 Consult to Cardiology [CONS] Routine Comment: Consulting Provider: Yusfu Clay Reason for Consult: syncope with bradycardia Call Completed: Yes - Constitutional Vitals: Temp Pulse Resp BP Pulse Ox 98.0 F 55 16 114/63 96 03/04/18 15:41 03/04/18 15:41 03/04/18 15:41 03/04/18 15:41 03/04/18 15:41 - Patient Status Disposition: Home, Self-Care Condition: Good - Discharge Instructions Follow Up With: Noemi Lowe CNP [Primary Care Provider] -
--- NOTE | 2018-03-07 11:28 | Electrocardiograph Report ---
[place] [id number] Test Date: 2018-03-03 Pat Name: Vinnie Welch Department: 104 Room: 2A43 Gender: M Securities Supervisor: BRENDAN : 1950 Requested By: Hunter Nur Order Number: [id number] Reading MD: Ronen Padilla Measurements Intervals [place] Rate: 55 P: 212 IN: 112 QRS: 20 QRSD: 95 T: 8 QT: 365 QTc: 355 Interpretive Statements POSSIBLE ECTOPIC ATRIAL BRADYCARDIA SUPRAVENTRICULAR PREMATURE COMPLEXES BASELINE ARTIFACT Electronically Signed On 03-07-2018 11:27:07 EDT by Ronen Padilla
== END 2018-03-04 17:32 | disposition home or self-care (01) | DRG 638 ==
LOC: EMEROO 19:19 → 2SOUTHHOLD 19:19 → 2ANU 03-03 19:50
PROVIDERS: ADMIT Internal Medicine; ATTEND Internal Medicine